=== PATIENT | female | born 1935 | race Caucasian/White ===

== ENCOUNTER → 2017-02-08 | Day surgery (SDC) | payer OTHER ==
[~2017-02-08] MED LIST: ACETAMINOPHEN PO; ARTIFICIAL TEAR15 M1 OU; ASPIRIN81 MG PO; BENADRYL PO; BENEFIBER PO; CALCIUM PO; CENTRUM PO; CENTRUM SILVER PO; CENTRUM SILVER1 EAC3 PO; CERTAGEN PO; CLINDAMYCIN 300 MG; CLINDAMYCIN HC300 MG PO; COUMADIN PO; CRANBERRY500 M1 PO; CRANBERRY500 MG PO; DARVOCET-N 1001 TAB PO; DOXYCYCLINE HY100 M3 PO; DOXYCYCLINE PO; DYMISTA NASAL S23 GM; ELESTAT OU; FISH OIL 1,0001 CAP PO; FISH OIL SOFTGE1 CA1 PO; FISH OIL300 MG PO; FLONASE16 GM; INDAPAMIDE2.5 M1 PO; IRON PO; K-DUR20 ME1 PO; K-DUR20 ME2 PO; KEFLEX500 M1 PO; LANSOPRAZOLE30 M2 PO; LASIX PO; LASIX20 MG PO; LIPITOR PO; LIPITOR20 MG PO; LORTAB 7.51 TAB 7.5/ PO; LOZOL PO; LOZOL2.5 M1 PO; MACROBID 100 M100 MG PO; MAG PO; MAGNESIUM250 M1 PO; MEDROL DOSE PACK; MOBIC; MOBIC PO; MOBIC15 MG PO; MONTELUKAST SOD10 MG PO; OMEGA 3 PO; OPTIVE OU; OS-CAL 500 + D500 MG PO; OSCAL; OSTEO BI FLEX PO; OSTEO BI-FLEX1 EAC1 PO; OSTEO BI-FLEX1 EAC4 PO; PERCOCET 10/3251 TAB PO; PERCOCET5/325 PO; PHENERGAN PO; POTASSIUM CHL PO; PREMARIN; PREMARIN PO; PREMARIN0.45 MG PO; PREMPRO 0.45/1.1 TAB; PREVACID PO; PREVAGEN PO; REGLAN PO; SERTRALINE HCL50 M1 PO; SINGULAIR PO; SYNTHROID PO; SYNTHROID0.1 MG PO; SYSTANE; TYLENOL #3 PO; TYLENOL PM PO; TYLENOL325 M1 PO; VIT B-12 PO; VITAMIN C PO; VITAMIN D PO; XIBROM OU; ZOLOFT PO; ZOLOFT100 MG PO; ZYRTEC PO; ZYRTEC10 M1 PO; ZYRTEC10 M2 PO; [UNRECOGNIZED DRUG - OTHER]; [UNRECOGNIZED DRUG - OTHER]; [UNRECOGNIZED DRUG - OTHER]; [UNRECOGNIZED DRUG - OTHER]; [UNRECOGNIZED DRUG - OTHER] PO; [UNRECOGNIZED DRUG - REMARK]
--- NOTE | ~2017-02-08 | OR ---
Unit #: [id number] #: [id number] Patient: RONA PAREDES [id number] [address] [place], [place] [address] [id number] MR#: [id number] NAME: RONA PAREDES. ROOM: Date of Procedure: 02/08/2017 Admission Date: 02/08/2017 Surgeon: Federico Escalona M.D. : 1935 Attending Physician: Gabino Escalona Primary Care Physician: Tamera Bella M.D. SUR[facility] CENTER OPERATIVE NOTE PROCEDURE PERFORMED Lumbar epidural steroid injection under x-ray guided needle placement with provider administered conscious sedation. PREOPERATIVE DIAGNOSES 1. Acute lumbar radiculitis. 2. Spinal stenosis, lumbosacral spine. 3. Herniated disk, multiple levels. 4. Degenerative disk disease, lumbosacral spine. 5. Degenerative joint disease, lumbosacral spine. INDICATIONS FOR PROCEDURE The patient presents today with longstanding history of chronic lumbar radicular pain secondary to her underlying degenerative processes. She is generally fairly well managed medically with ongoing continuous conservative management; however, she does occasionally experience exacerbations, which to date have only responded to epidural steroid injections. Her usual amount of relief is 60% to 80% for 6 to 8 weeks, whereupon she would develop a crescendo pattern return of her pain culminating in approximately 12- to 14-week interval of pain, which negatively impacts her activities of daily living. She presents today having just such an exacerbation which is consistent with past exacerbations as well as consistent with previous diagnostic x-ray studies. After discussing risks and benefits of proceeding today with lumbar approach epidural steroid injection utilizing a dual needle technique as well as return to this clinic on 05/24/2017, the patient agreed this would be the appropriate course of action. DESCRIPTION OF PROCEDURE She was then taken to the operating room, where she was prepped and draped in sterile manner. Standard monitors were applied. She was sedated with 2 mg of IV Versed and lumbar epidural space accessed at the L5-S1 and L3-L4 levels using loss of resistance technique and x-ray guidance. Needle placement was confirmed at each level with the injection of 2 mL of Omnipaque. There was good superior and inferior flow at both of these needle placement levels. Following successful needle placement confirmation which required an x-ray time was 7 seconds, the patient received an injectate containing 4 mL normal saline and 40 mg of methylprednisolone at each level for a total injectate volume of 8 mL normal saline and 80 mg of methylprednisolone. She tolerated this procedure well and was discharged home with followup instructions, which include return dates as described above. Unit #: [id number] #: [id number] Patient: RONA PAREDES Dictated by... Colten Cid/rosalva TD: 02/08/2017 23:50 JOB #: [id number] [facility] OPERATIVE NOTE Page 1 of 1 X Gabino Escalona MD X PROCEDURE OPERATIVE NOTE
== END | disposition home or self-care (01) ==
LOC: CCSC 08:42
DX: G89.29 Other chronic pain (principal); M51.17 Intervertebral disc disorders with radiculopathy, lumbosacral region; M48.07 Spinal stenosis, lumbosacral region
CPT/HCPCS: J1040; J2250

== ENCOUNTER → 2017-05-22 | Day surgery (SDC) | payer OTHER ==
--- NOTE | ~2017-05-22 | OR ---
Unit #: [id number] #: [id number] Patient: RONA PAREDES [id number] [address] [place], [place] [address] [id number] MR#: [id number] NAME: RONA PAREDES. ROOM: Date of Procedure: 05/22/2017 Admission Date: 05/22/2017 Surgeon: Federico Escalona M.D. : 1935 Attending Physician: Gabino Escalona Primary Care Physician: Tamera Bella M.D. SUR[facility] CENTER OPERATIVE NOTE PROCEDURE PERFORMED Lumbar epidural steroid injection under x-ray guided needle placement with provider administered conscious sedation. PREOPERATIVE DIAGNOSES 1. Acute lumbar radiculitis. 2. Spinal stenosis, lumbosacral spine. 3. Multiple levels herniated disk. 4. Multiple levels listhesis. 5. Degenerative joint disease, lumbosacral spine. 6. Degenerative disk disease, lumbosacral spine. INDICATIONS FOR PROCEDURE The patient presents today with longstanding history of chronic lumbar radicular pain secondary to her underlying degenerative processes. She is generally fairly well managed medically with ongoing continuous treatment consisting of medication and self-directed physical activity. She is known to occasionally experience exacerbations of her radicular disease, which to date have only responded to epidural steroid injections. Her usual amount of relief is 60% to 80% for 6 to 8 weeks. However, she has been known to get occasionally better results than that. She presents today with approximately 2 to 4 week history of an exacerbation of her ongoing chronic radicular pain, which has broken through her usual ongoing continuous conservative measures. Her complaints today are primarily left-sided and are compatible with prior complaints as well as her x-ray studies. After discussing risks and benefits of proceeding today with a lumbar approach epidural steroid injection utilizing a dual needle technique, the patient agreed this would be the appropriate course of action. DESCRIPTION OF PROCEDURE She was then taken to the operating room where she was prepped and draped in a sterile manner. Standard monitors were applied. She was sedated with 1 mg of IV Versed and lumbar epidural space accessed at the L5-S1 and L2-L3 levels using loss of resistance technique and x-ray guidance. Needle placement was confirmed with injection of 2 mL of Omnipaque at each level. There was good superior and inferior flow at the L5-S1 level; however, at the L2-L3 level, primary flow was in the superior direction. At next visit, we will most likely do an L3-L4 approach with the second of 2 needles. Following needle placement which required an x-ray time of 9 seconds, the patient received an injectate containing 4 mL normal saline and 40 mg of methylprednisolone at each level for a total injectate volume today of 8 mL normal saline and 80 mg of methylprednisolone. She Unit #: [id number] #: [id number] Patient: RONA PAREDES tolerated this procedure well. She was discharged home with followup instructions which include an offer to return this clinic as early as 08/30/2017 if we could be of further service to her. She was further instructed as per all my clinic patients are that if she were asymptomatic at the time of being scheduled appointment to simply not keep that appointment and to follow up at such time as we could be of further service to her. She was further instructed if she ever reached a point where she felt the shots were of no additional benefit that she was simply to stop taking the shots and report to her primary care provider of the results. Dictated by... Colten Cid/rosalva TD: 05/22/2017 15:54 JOB #: [id number] [facility] OPERATIVE NOTE Page 1 of 1 X Gabino Escalona MD X PROCEDURE OPERATIVE NOTE
== END | disposition home or self-care (01) ==
LOC: CCSC 12:16
DX: G89.29 Other chronic pain (principal); M51.17 Intervertebral disc disorders with radiculopathy, lumbosacral region; M47.27 Other spondylosis with radiculopathy, lumbosacral region; M43.16 Spondylolisthesis, lumbar region; M48.07 Spinal stenosis, lumbosacral region; E03.9 Hypothyroidism, unspecified; Z87.01 Personal history of pneumonia (recurrent); Z88.1 Allergy status to other antibiotic agents; Z88.2 Allergy status to sulfonamides; Z88.6 Allergy status to analgesic agent; Z88.8 Allergy status to other drugs, medicaments and biological substances; Z79.1 Long term (current) use of non-steroidal anti-inflammatories (NSAID); Z79.899 Other long term (current) drug therapy; Z90.49 Acquired absence of other specified parts of digestive tract; Z90.710 Acquired absence of both cervix and uterus; Z96.653 Presence of artificial knee joint, bilateral; Z98.890 Other specified postprocedural states
CPT/HCPCS: J1040; J2250